=== PATIENT | male | born 1980 | race Caucasian/White ===

== ENCOUNTER 2017-06-08 23:19 | Inpatient (IN) | payer SELFPAY ==
[2017-06-09] MEDS ORDERED: NORMAL SALINE 1000 ML 1,000 ML IV ONE ×4 (00:21→03:47)
--- NOTE | 2017-06-09 00:46 | ER Document Report ---
ED Blood Sugar Problem - General Chief Complaint: High Blood Sugar Stated Complaint: POSSIBLE HIGH BLOOD SUGAR Time Seen by Provider: 06/09/17 00:30 Mode of Arrival: Ambulatory Information source: Patient TRAVEL OUTSIDE OF THE [place] IN LAST 30 DAYS: No - HPI Onset: This evening Onset/Duration: Gradual Quality of pain: Other - SORENESS Severity: Moderate Blood sugar level at home: 400's Insulin taken: Yes Glucose taken: No Associated symptoms: Increased thirst, Frequent urination, Nausea, Vomiting, Weakness - Related Data Allergies/Adverse Reactions: No Known Allergies Allergy (Verified 06/09/17 02:23) Past Medical History - General Information source: Patient - Social History Smoking Status: Current Every Day Smoker Cigarette use (# per day): Yes Chew tobacco use (# tins/day): No Frequency of alcohol use: Occasional Drug Abuse: None Lives with: Friend Family History: DM - Mother Patient has suicidal ideation: No Patient has homicidal ideation: No - Past Medical History Cardiac Medical History: Reports: Hx Hypertension Pulmonary Medical History: Reports: None EENT Medical History: Reports: None Neurological Medical History: Reports: None Endocrine Medical History: Reports: Hx Diabetes Mellitus Type 1, Hx Diabetes Mellitus Type 2 Renal/ Medical History: Reports: None. Denies: Hx Peritoneal Dialysis Malignancy Medical History: Reports None GI Medical History: Reports: None, Hx Gastroesophageal Reflux Disease Musculoskeltal Medical History: Reports None Psychiatric Medical History: Reports: None Denies: Hx Depression Surgical Hx: Negative - Immunizations Immunizations up to date: Yes Hx Diphtheria, Pertussis, Tetanus Vaccination: Yes Hx Pneumococcal Vaccination: 10/06/13 Review of Systems - Review of Systems Constitutional: Weakness EENT: Throat pain Cardiovascular: No symptoms reported Respiratory: Cough Gastrointestinal: Nausea, Vomiting Genitourinary: No symptoms reported Musculoskeletal: No symptoms reported Skin: No symptoms reported Neurological/Psychological: Weakness Physical Exam - Vital signs Vitals: Temp Pulse Resp BP Pulse Ox 97.9 F 132 H 18 133/91 H 96 06/09/17 00:09 06/09/17 00:09 06/09/17 00:09 06/09/17 00:09 06/09/17 00:09 Interpretation: Hypertensive, Tachycardic. No: Tachypneic, Febrile - General General appearance: Appears well, Alert In distress: None - HEENT Head: Normocephalic Eyes: Normal Conjunctiva: Normal Ears: Normal Nasal: Normal Mouth/Lips: Normal Mucous membranes: Dry Pharynx: Erythema. No: Exudate Neck: Normal, Supple - Respiratory Respiratory status: No respiratory distress Breath sounds: Normal - Cardiovascular Rhythm: Regular, Tachycardia Heart sounds: Normal auscultation Murmur: No - Abdominal Inspection: Normal Distension: No distension - Extremities General upper extremity: Normal inspection General lower extremity: Normal inspection - Neurological Neuro grossly intact: Yes Cognition: Normal Orientation: AAOx4 - Psychological Associated symptoms: Normal affect, Normal mood - Skin Skin Temperature: Warm Skin Moisture: Dry Skin Color: Normal Skin Turgor: Elastic Course - Vital Signs Vital signs: Temp Pulse Resp BP Pulse Ox 97.9 F 132 H 20 155/93 H 100 06/09/17 00:09 06/09/17 00:09 06/09/17 03:01 06/09/17 03:01 06/09/17 03:01 - Laboratory Result Diagrams: 06/09/17 01:15 06/09/17 01:15 Laboratory results interpreted by me: 06/09/17 06/09/17 06/09/17 00:58 01:15 01:15 WBC 13.1 H Seg Neutrophils % 79.1 H Absolute Neutrophils 10.3 H VBG pH VBG HCO3 Sodium 135.5 L Potassium 5.4 H Chloride 94 L Carbon Dioxide 6 L* Anion Gap 36 H BUN 28 H Glucose 525 H* POC Glucose 528 H* Calcium 10.6 H Direct Bilirubin 0.6 H Alkaline Phosphatase 129 H Total Protein 8.8 H Albumin 5.4 H Urine Glucose (UA) Urine Ketones Urine Blood 06/09/17 06/09/17 01:15 01:15 WBC Seg Neutrophils % Absolute Neutrophils VBG pH 7.15 L* VBG HCO3 12.3 L Sodium Potassium Chloride Carbon Dioxide Anion Gap BUN Glucose POC Glucose Calcium Direct Bilirubin Alkaline Phosphatase Total Protein Albumin Urine Glucose (UA) >=500 H Urine Ketones 80 H Urine Blood MODERATE H - EKG Interpretation by Me EKG shows normal: Sinus rhythm, [place], Intervals, QRS Complexes, ST-T Waves - INF. T ABNLS, NS Rate: Tachycardia - Consults DR. BEACH Time consulted: 03:42 Consulted provider: will come to ER Discharge - Discharge Clinical Impression: Tachycardia DKA (diabetic ketoacidoses) Qualifiers: Diabetes mellitus type: type 1 Diabetes mellitus complication detail: without coma Qualified Code(s): E10.10 - Type 1 diabetes mellitus with ketoacidosis without coma Hypertension Qualifiers: Hypertension type: essential hypertension Qualified Code(s): I10 - Essential ( primary) hypertension Condition: Fair Disposition: ADMITTED INPATIENT Admitting Provider: Hospitalist Unit Admitted: [facility]
[2017-06-09 01:29] LABS: ABSOLUTE BASOPHILS # (AUTO) 0.1 10^3/uL (0.0-0.2); ABSOLUTE LYMPHOCYTES (AUTO) 1.8 10^3/uL (0.5-4.7); ABSOLUTE MONOCYTES (AUTO) 0.8 10^3/uL (0.1-1.4); ABSOLUTE NEUT (AUTO) 10.3 10^3/uL (1.7-8.2); EOSINOPHILS % (AUTO) 0.1 % (0-6); HEMATOCRIT 41.9 % (37.9-51.0); HEMOGLOBIN 13.7 g/dL (13.5-17.0); HGB HCT DIFFERENCE -0.8; LYMPHOCYTES % (AUTO) 13.6 % (13-45); MEAN CORPUSCULAR HEMOGLOBIN 31.1 pg (27.0-33.4); MEAN CORPUSCULAR HGB CONC 32.6 g/dL (32.0-36.0); MEAN CORPUSCULAR VOLUME 96 fl (80-97); MONOCYTES % (AUTO) 6.2 % (3-13); RED BLOOD COUNT 4.39 10^6/uL (4.35-5.55); RED CELL DISTRIBUTION WIDTH 13.6 % (11.5-14.0); SEGMENTED NEUTROPHILS % (AUTO) 79.1 % (42-78); WHITE BLOOD COUNT 13.1 10^3/uL (4.0-10.5)
[2017-06-09 01:31] LABS: VENOUS BLOOD BASE EXCESS -15.7 mmol/L; VENOUS BLOOD HCO3 12.3 mmol/L (20-32); VENOUS BLOOD PCO2 36.5 mmHg (35-63)
[2017-06-09 01:32] LABS: VENOUS BLOOD PH 7.15 (7.30-7.42)
[2017-06-09] MEDS ORDERED: NORMAL SALINE 100 ML with INSULIN REGULAR, HUMAN 100 UNIT IV PRN ×4 (01:34→03:43)
[2017-06-09] MEDS ORDERED: INSULIN REG, HUMAN 100 UNIT/ML 3 ML VIAL (PYX) IV ONE (01:38)
[2017-06-09 01:42] LABS: ALANINE AMINOTRANSFERASE 24 U/L (21-72); ALBUMIN 5.4 g/dL (3.5-5.0); ALKALINE PHOSPHATASE 129 U/L (38-126); ASPARTATE AMINO TRANSFERASE 24 U/L (17-59); BILIRUBIN,DIRECT 0.6 mg/dL (0.0-0.4); BILIRUBIN,TOTAL 0.8 mg/dL (0.2-1.3); BLOOD UREA NITROGEN 28 mg/dL (7-20); CALCIUM 10.6 mg/dL (8.4-10.2); CHLORIDE 94 mmol/L (98-107); CREATININE RESULT 1.22 mg/dL (0.52-1.25); SODIUM 135.5 mmol/L (137-145); TOTAL PROTEIN 8.8 g/dL (6.3-8.2)
[2017-06-09] MEDS ORDERED: ONDANSETRON HCL INJ/PF 4 MG/2 ML SDV IV ONE (01:45)
[2017-06-09 01:46] LABS: APPEARANCE,URINE CLEAR; BILIRUBIN,URINE NEGATIVE (NEGATIVE); GLUCOSE, URINE >=500 mg/dL (NEGATIVE); KETONES,URINE 80 mg/dL (NEGATIVE); LEUKOCYTE ESTERASE,URINE NEGATIVE (NEGATIVE); NITRITE,URINE NEGATIVE (NEGATIVE); PROTEIN,URINE NEGATIVE (NEGATIVE); UROBILINOGEN,URINE NEGATIVE mg/dL (<2.0)
[2017-06-09 01:59] LABS: POTASSIUM 5.4 mmol/L (3.6-5.0)
[2017-06-09 02:01] LABS: ANION GAP 36 (5-19)
[2017-06-09 02:02] LABS: CARBON DIOXIDE 6 mmol/L (22-30); GLUCOSE 525 mg/dL (75-110)
[2017-06-09 02:24] LABS: CREATINE KINASE MB 2.06 ng/mL (<4.55)
[2017-06-09 02:25] LABS: TROPONIN I < 0.012 ng/mL
[2017-06-09] MEDS ORDERED: DEXTROSE 40% GEL 15 GM TUBE PO PRN ×2 (03:43)
[2017-06-09] MEDS ORDERED: ACETAMINOPHEN 325 MG TABLET PO PRN (03:43)
[2017-06-09] MEDS ORDERED: IPRATROPIUM/ALBUTEROL 0.5-2.5 MG/3 ML AMPUL NEB PRN (03:43)
[2017-06-09] MEDS ORDERED: DEXTROSE 50%-WATER 25 GM/50 ML DISP.SYRIN IV PRN ×2 (03:43)
[2017-06-09] MEDS ORDERED: GLUCAGON,HUMAN RECOMB 1 MG INJ IM PRN (03:43)
[2017-06-09 04:09] LABS: MAGNESIUM 2.3 mg/dL (1.6-2.3); PHOSPHORUS 5.8 mg/dL (2.5-4.5)
--- NOTE | 2017-06-09 04:49 | PDOC H&P ---
History of Present Illness Admission Date/PCP: 06/09/17 03:49 Patient complains of: Hyperglycemia and abdominal pain History of Present Illness: LEANNA HERNANDEZ II is a 36 year old male with a past medical history of insulin- dependent diabetes and recurrent admissions for DKA. Patient denies medication , diet or lifestyle noncompliance. However admits to recent URI and persistent tobacco abuse. He has had approximately 48 hours of worsening glycemic control developing abdominal pain nausea vomiting, polyuria and polydipsia. Recognizing the symptoms he is prompted to seek evaluation emergency room finding severe diabetic ketoacidosis with hyperkalemia, tachycardia and leukocytosis. He started on IV fluid, insulin and referred to the hospitalist for admission. Past Medical History Cardiac Medical History: Reports: Hypertension Pulmonary Medical History: Reports: None EENT Medical History: Reports: None Neurological Medical History: Reports: None Endocrine Medical History: Reports: Diabetes Mellitus Type 1, Diabetes Mellitus Type 2 Renal/ Medical History: Reports: None Malignancy Medical History: Reports: None GI Medical History: Reports: None, Gastroesophageal Reflux Disease Musculoskeltal Medical History: Reports: None Psychiatric Medical History: Reports: None Denies: Depression Social History Information Source: Patient, [facility] Records Lives with: Friend Smoking Status: Current Every Day Smoker Cigarettes Packs Per Day: 1 Frequency of Alcohol Use: Rare Hx Recreational Drug Use: No Drugs: None Hx Prescription Drug Abuse: No - Advance Directive Resuscitation Status: Full Code Family History Family History: DM - Mother Parental Family History Reviewed: Yes Children Family History Reviewed: Yes Sibling(s) Family History Reviewed.: Yes Medication/Allergy Home Medications: Insulin Lispro [Humalog Insulin (Lispro) 100 unit/mL] 0 unit SUBCUT ACHSP PRN # 1 pe 05/18/15 Insulin Glargine,Hum.rec.anlog [Lantus Insulin 100 Unit/1 ml 10 ml] 30 unit SUBCUT QHS 06/18/16 Albuterol Sulfate [Proair HFA Inhalation Aerosol 8.5 gm MDI] 2 puff IH Q6 #1 hfa.aer.ad 06/19/16 Fluticasone Propionate [Flonase Nasal [place] 50 Mcg/[place] 16 gm] 1 spray NASL Q12 #1 bottle 06/19/16 Guaifenesin [Mucinex Sr 600 mg Tablet.sa] 1,200 mg PO Q12 #30 tablet.sa Insulin Glargine,Hum.rec.anlog [Lantus Insulin 100 Unit/1 ml 10 ml] 10 unit SUBCUT QAM 30 Days unit 06/19/16 Insulin Lispro [Humalog Insulin (Lispro) 100 unit/mL] 0 - 12 unit SUBCUT ACHSP PRN unit 06/19/16 Omeprazole Magnesium [Prilosec Otc] 20 mg PO BID #60 tablet. 06/19/16 Allergies/Adverse Reactions: No Known Allergies Allergy (Verified 06/09/17 02:23) Review of Systems Constitutional: ABSENT: chills, fever(s), headache(s), weight gain, weight loss Eyes: ABSENT: visual disturbances Ears: ABSENT: hearing changes Cardiovascular: ABSENT: chest pain, dyspnea on exertion, edema, orthropnea, palpitations Respiratory: ABSENT: cough, hemoptysis Gastrointestinal: ABSENT: abdominal pain, constipation, diarrhea, hematemesis, hematochezia, nausea, vomiting Genitourinary: ABSENT: dysuria, hematuria Musculoskeletal: ABSENT: joint swelling Integumentary: ABSENT: rash, wounds Neurological: ABSENT: abnormal gait, abnormal speech, confusion, dizziness, focal weakness, syncope Psychiatric: ABSENT: anxiety, depression, homidical ideation, suicidal ideation Endocrine: ABSENT: cold intolerance, heat intolerance, polydipsia, polyuria Hematologic/Lymphatic: ABSENT: easy bleeding, easy bruising Physical Exam Vital Signs: Temp Pulse Resp BP Pulse Ox 97.9 F 120 H 18 156/87 H 100 06/09/17 04:37 06/09/17 04:37 06/09/17 04:37 06/09/17 04:37 06/09/17 04:37 General appearance: PRESENT: cooperative, disheveled, severe distress, thin Head exam: PRESENT: atraumatic, normocephalic Eye exam: PRESENT: conjunctiva pink, EOMI, PERRLA. ABSENT: scleral icterus Ear exam: PRESENT: normal external ear exam Mouth exam: PRESENT: dry mucosa Neck exam: ABSENT: carotid bruit, JVD, lymphadenopathy, thyromegaly Respiratory exam: PRESENT: accessory muscle use, clear to auscultation bria, tachypnea. ABSENT: rales, rhonchi, wheezes Cardiovascular exam: PRESENT: RRR. ABSENT: diastolic murmur, rubs, systolic murmur Pulses: PRESENT: normal dorsalis pedis pul Vascular exam: PRESENT: normal capillary refill GI/Abdominal exam: PRESENT: hyperactive bowel sounds, soft, tenderness. ABSENT : distended, firm, guarding, rebound, rigid Rectal exam: PRESENT: deferred Extremities exam: PRESENT: full ROM. ABSENT: calf tenderness, clubbing, pedal edema Neurological exam: PRESENT: alert, awake, oriented to person, oriented to place , oriented to time, oriented to situation, CN II-XII grossly intact. ABSENT: motor sensory deficit Psychiatric exam: PRESENT: appropriate affect, normal mood. ABSENT: homicidal ideation, suicidal ideation Skin exam: PRESENT: dry, intact, warm. ABSENT: cyanosis, rash Assessment & Plan - Diagnosis (1) DKA (diabetic ketoacidoses) Qualifiers: Diabetes mellitus type: type 1 Diabetes mellitus complication detail: without coma Qualified Code(s): E10.10 - Type 1 diabetes mellitus with ketoacidosis without coma Is this a current diagnosis for this admission?: Yes Plan: Admission to IMCU, n.p.o., IV fluids and insulin based on chemistry results every 4 hours, electrolyte repletion as needed and education (2) Tachycardia Is this a current diagnosis for this admission?: Yes Plan: Secondary to #1 with dehydration and abdominal pain IV fluid resuscitation (3) Leukocytosis Is this a current diagnosis for this admission?: Yes Plan: Secondary to #1 correct underlying cause reevaluate CBC (4) Tobacco use disorder Is this a current diagnosis for this admission?: Yes Plan: Tobacco Dependence patient received tobacco cessation counseling and offered nicotine replacement options - Time Time Spent: 50 to 70 Minutes - Inpatient Certification Medical Necessity: Need Close Monitoring Due to Risk of Patient Decompensation
[2017-06-09 05:08] LABS: ABSOLUTE BASOPHILS # (AUTO) 0.1 10^3/uL (0.0-0.2); ABSOLUTE LYMPHOCYTES (AUTO) 1.7 10^3/uL (0.5-4.7); ABSOLUTE MONOCYTES (AUTO) 0.8 10^3/uL (0.1-1.4); ABSOLUTE NEUT (AUTO) 10.4 10^3/uL (1.7-8.2); BASOPHILS % (AUTO) 0.7 % (0-2); HEMATOCRIT 34.4 % (37.9-51.0); HEMOGLOBIN 11.8 g/dL (13.5-17.0); LYMPHOCYTES % (AUTO) 12.9 % (13-45); MEAN CORPUSCULAR HEMOGLOBIN 31.5 pg (27.0-33.4); MEAN CORPUSCULAR HGB CONC 34.2 g/dL (32.0-36.0); MONOCYTES % (AUTO) 5.9 % (3-13); RED BLOOD COUNT 3.74 10^6/uL (4.35-5.55); RED CELL DISTRIBUTION WIDTH 13.3 % (11.5-14.0); SEGMENTED NEUTROPHILS % (AUTO) 80.5 % (42-78); WHITE BLOOD COUNT 12.9 10^3/uL (4.0-10.5)
[2017-06-09] MEDS ORDERED: DEXTROSE 5%-1/2 NORMAL SALINE 1,000 ML IV PRN (05:14)
[2017-06-09 05:21] LABS: ANION GAP 19 (5-19); BLOOD UREA NITROGEN 25 mg/dL (7-20); CARBON DIOXIDE 13 mmol/L (22-30); CHLORIDE 107 mmol/L (98-107); CREATININE RESULT 0.98 mg/dL (0.52-1.25); GLUCOSE 184 mg/dL (75-110); POTASSIUM 4.9 mmol/L (3.6-5.0); SODIUM 138.8 mmol/L (137-145)
[2017-06-09 05:22] LABS: MEAN CORPUSCULAR VOLUME 92 fl (80-97)
[2017-06-09] MEDS: HEPARIN SOD (PORCINE) 5,000 UNIT/ML 1 ML SYRINGE SUBCUT SCH ×3 (05:36→22:13)
[2017-06-09] MEDS: POTASSI CL 20 MEQ/D5-1/2NS 1L 1,000 ML IV PRN ×2 (05:36→10:05)
[2017-06-09] MEDS ORDERED: INSULIN GLARGINE,HUM.REC.ANLOG 1,000 UNIT/10 ML UNIT SUBCUT SCH ×2 (08:00→22:00)
[2017-06-09] MEDS ORDERED: IPRATROPIUM/ALBUTEROL 0.5-2.5 MG/3 ML AMPUL NEB SCH (08:00)
--- NOTE | 2017-06-09 08:41 | PDOC PROGRESS REPORT ---
Subjective Progress Note for:: 06/09/17 Subjective:: Patient is seen on morning rounds. He is sitting on the side of the bed eating ice chips. He denies any nausea, vomiting or abdominal pain. He denies any cough , dyspnea or shortness of breath. He denies any fevers or chills. He states he has not had his lantus insulin pen for 2 days because he was staying at a friend 's house and left it there. He states they came to [place] to go to a barbeque and were drinking " Body Armor.." which is apparently quite high in sugar when he began feeling ill. He denies any complaints at the present time. He is hungry. Physical Exam Vital Signs: Temp Pulse Resp BP Pulse Ox 99.2 F 111 H 16 115/61 100 06/09/17 07:30 06/09/17 07:30 06/09/17 07:30 06/09/17 07:30 06/09/17 07:30 Intake & Output 06/08/17 06/09/17 06/10/17 06:59 06:59 06:59 Intake Total 430 Balance 430 Weight 56.6 kg General appearance: PRESENT: no acute distress, thin, well-developed Head exam: PRESENT: atraumatic, normocephalic Eye exam: PRESENT: conjunctiva pink, EOMI, PERRLA. ABSENT: scleral icterus Ear exam: PRESENT: normal external ear exam Mouth exam: PRESENT: moist, tongue midline Teeth exam: PRESENT: poor dentation Neck exam: ABSENT: carotid bruit, JVD, lymphadenopathy, thyromegaly Respiratory exam: PRESENT: clear to auscultation bria. ABSENT: rales, rhonchi, wheezes Cardiovascular exam: PRESENT: RRR. ABSENT: diastolic murmur, rubs, systolic murmur Pulses: PRESENT: normal dorsalis pedis pul Vascular exam: PRESENT: normal capillary refill GI/Abdominal exam: PRESENT: normal bowel sounds, soft. ABSENT: distended, guarding, mass, organolmegaly, rebound, tenderness Rectal exam: PRESENT: deferred Extremities exam: PRESENT: calf tenderness Musculoskeletal exam: PRESENT: ambulatory Neurological exam: PRESENT: alert, awake, oriented to person, oriented to place , oriented to time, oriented to situation, CN II-XII grossly intact. ABSENT: motor sensory deficit Psychiatric exam: PRESENT: appropriate affect, normal mood. ABSENT: homicidal ideation, suicidal ideation Skin exam: PRESENT: dry, intact, warm. ABSENT: cyanosis, rash Results Laboratory Results: 06/09/17 05:01 06/09/17 05:01 06/09/17 06/09/17 05:01 05:01 WBC 12.9 H RBC 3.74 L Hgb 11.8 L Hct 34.4 L MCV 92 D MCH 31.5 MCHC 34.2 RDW 13.3 Plt Count 278 Seg Neutrophils % 80.5 H Lymphocytes % 12.9 L Monocytes % 5.9 Eosinophils % 0.0 Basophils % 0.7 Absolute Neutrophils 10.4 H Absolute Lymphocytes 1.7 Absolute Monocytes 0.8 Absolute Eosinophils 0.0 Absolute Basophils 0.1 Sodium 138.8 Potassium 4.9 Chloride 107 Carbon Dioxide 13 L Anion Gap 19 BUN 25 H Creatinine 0.98 Est GFR ( Amer) > 60 Est GFR (Non-Af Amer) > 60 Glucose 184 H Calcium 9.0 Assessment & Plan - Diagnosis (1) DKA (diabetic ketoacidoses) Qualifiers: Diabetes mellitus type: type 1 Diabetes mellitus complication detail: without coma Qualified Code(s): E10.10 - Type 1 diabetes mellitus with ketoacidosis without coma Is this a current diagnosis for this admission?: Yes Plan: Gap has closed. Will continue IV insulin, with dextrose source IV fluids. Begin diabetic diet, transition to lantus insulin and monitor BMP every 4 hrs (2) Tachycardia Is this a current diagnosis for this admission?: Yes Plan: Improving with IV hydration. No signs of sepsis or infectious source (3) Leukocytosis Is this a current diagnosis for this admission?: Yes Plan: Most likely secondary to acidosis and dehydration. Improving. No signs of infection (4) Noncompliance Is this a current diagnosis for this admission?: Yes (5) Tobacco use disorder Is this a current diagnosis for this admission?: Yes Plan: Counseled (6) DVT prophylaxis Is this a current diagnosis for this admission?: Yes Plan: Heparin 5000u q8h - Time Time Spent with patient: 25-34 minutes Critical Time spent with patient: 15-24 minutes Medications reviewed and adjusted accordingly: Yes Anticipated discharge: Home Within: within 48 hours
--- NOTE | 2017-06-09 09:11 | EKG REPORT ---
SEVERITY:- ABNORMAL ECG - SINUS TACHYCARDIA NONSPECIFIC T ABNORMALITIES, INFERIOR LEADS : Confirmed by: Lorenzo Solis MD 09-Jun-2017 09:11:24
[2017-06-09] MEDS: LANSOPRAZOLE 30 MG TAB.RAP.DR PO SCH (10:32)
[2017-06-09] MEDS: FLUTICASONE NASAL SPRAY 50 MCG/SPRY 120 SPRAY/16 GM NASL SCH ×2 (10:33→22:13)
[2017-06-09] MEDS: GUAIFENESIN 600 MG TABLET.SA PO SCH ×2 (10:38→22:13)
[2017-06-09] MEDS: DOCUSATE SODIUM 100 MG CAPSULE PO SCH ×2 (10:38→19:07)
[2017-06-09 10:41] LABS: ANION GAP 11 (5-19); BLOOD UREA NITROGEN 21 mg/dL (7-20); CALCIUM 8.5 mg/dL (8.4-10.2); CARBON DIOXIDE 20 mmol/L (22-30); CHLORIDE 106 mmol/L (98-107); CREATININE RESULT 0.86 mg/dL (0.52-1.25); GLUCOSE 172 mg/dL (75-110); POTASSIUM 4.4 mmol/L (3.6-5.0); SODIUM 136.8 mmol/L (137-145)
[2017-06-09] MEDS ORDERED: PHENOL/SODIUM PHENOLATE 100 SPRAY/177 ML BOTTLE PO PRN (11:38)
[2017-06-09 14:43] LABS: ANION GAP 10 (5-19); BLOOD UREA NITROGEN 18 mg/dL (7-20); CALCIUM 8.5 mg/dL (8.4-10.2); CARBON DIOXIDE 21 mmol/L (22-30); CHLORIDE 104 mmol/L (98-107); CREATININE RESULT 0.79 mg/dL (0.52-1.25); GLUCOSE 208 mg/dL (75-110); SODIUM 134.6 mmol/L (137-145)
[2017-06-09 18:33] LABS: ANION GAP 11 (5-19); BLOOD UREA NITROGEN 16 mg/dL (7-20); CALCIUM 8.9 mg/dL (8.4-10.2); CARBON DIOXIDE 21 mmol/L (22-30); CHLORIDE 106 mmol/L (98-107); CREATININE RESULT 0.85 mg/dL (0.52-1.25); GLUCOSE 129 mg/dL (75-110); POTASSIUM 4.5 mmol/L (3.6-5.0); SODIUM 137.5 mmol/L (137-145)
[2017-06-09] MEDS: ALBUTEROL SULFATE HFA (90 MCG/PUFF) 200 PUFF/8.5 GM MDI IH SCH (19:12)
[2017-06-09 21:51] LABS: ANION GAP 11 (5-19); BLOOD UREA NITROGEN 15 mg/dL (7-20); CALCIUM 8.4 mg/dL (8.4-10.2); CARBON DIOXIDE 18 mmol/L (22-30); CHLORIDE 105 mmol/L (98-107); CREATININE RESULT 0.81 mg/dL (0.52-1.25); GLUCOSE 293 mg/dL (75-110); POTASSIUM 4.1 mmol/L (3.6-5.0); SODIUM 133.9 mmol/L (137-145)
[2017-06-09] MEDS ORDERED: INSULIN GLARGINE,HUM.REC.ANLOG 300 UNIT/3 ML INSULN.PEN SUBCUT SCH (22:00)
[2017-06-10] MEDS: ALBUTEROL SULFATE HFA (90 MCG/PUFF) 200 PUFF/8.5 GM MDI IH SCH ×3 (00:31→11:34)
[2017-06-10 01:20] LABS: ANION GAP 11 (5-19); BLOOD UREA NITROGEN 13 mg/dL (7-20); CALCIUM 8.9 mg/dL (8.4-10.2); CARBON DIOXIDE 20 mmol/L (22-30); CHLORIDE 108 mmol/L (98-107); CREATININE RESULT 0.76 mg/dL (0.52-1.25); GLUCOSE 180 mg/dL (75-110); POTASSIUM 3.9 mmol/L (3.6-5.0); SODIUM 138.6 mmol/L (137-145)
[2017-06-10 05:33] LABS: ABSOLUTE BASOPHILS # (AUTO) 0.1 10^3/uL (0.0-0.2); ABSOLUTE EOSINOPHILS # (AUTO) 0.2 10^3/uL (0.0-0.6); ABSOLUTE LYMPHOCYTES (AUTO) 2.3 10^3/uL (0.5-4.7); ABSOLUTE MONOCYTES (AUTO) 0.5 10^3/uL (0.1-1.4); ABSOLUTE NEUT (AUTO) 2.7 10^3/uL (1.7-8.2); BASOPHILS % (AUTO) 0.9 % (0-2); EOSINOPHILS % (AUTO) 3.3 % (0-6); LYMPHOCYTES % (AUTO) 39.8 % (13-45); MEAN CORPUSCULAR HEMOGLOBIN 31.1 pg (27.0-33.4); MEAN CORPUSCULAR HGB CONC 34.3 g/dL (32.0-36.0); MEAN CORPUSCULAR VOLUME 91 fl (80-97); MONOCYTES % (AUTO) 8.8 % (3-13); RED BLOOD COUNT 3.85 10^6/uL (4.35-5.55); RED CELL DISTRIBUTION WIDTH 13.7 % (11.5-14.0); SEGMENTED NEUTROPHILS % (AUTO) 47.2 % (42-78); WHITE BLOOD COUNT 5.8 10^3/uL (4.0-10.5)
[2017-06-10 05:45] LABS: ANION GAP 7 (5-19); BLOOD UREA NITROGEN 11 mg/dL (7-20); CALCIUM 9.1 mg/dL (8.4-10.2); CARBON DIOXIDE 25 mmol/L (22-30); CHLORIDE 107 mmol/L (98-107); CREATININE RESULT 0.74 mg/dL (0.52-1.25); GLUCOSE 180 mg/dL (75-110); POTASSIUM 3.4 mmol/L (3.6-5.0)
[2017-06-10] MEDS: HEPARIN SOD (PORCINE) 5,000 UNIT/ML 1 ML SYRINGE SUBCUT SCH ×2 (05:50→15:14)
[2017-06-10] MEDS ORDERED: INSULIN GLARGINE,HUM.REC.ANLOG 300 UNIT/3 ML INSULN.PEN SUBCUT SCH ×2 (08:00→08:31)
[2017-06-10] MEDS ORDERED: POTASSIUM CHLORIDE 10 MEQ TABLET.SA PO ONE (08:30)
[2017-06-10] MEDS: LANSOPRAZOLE 30 MG TAB.RAP.DR PO SCH (08:57)
[2017-06-10] MEDS: DOCUSATE SODIUM 100 MG CAPSULE PO SCH (09:03)
[2017-06-10] MEDS: GUAIFENESIN 600 MG TABLET.SA PO SCH (09:03)
[2017-06-10 09:34] LABS: BLOOD UREA NITROGEN 8 mg/dL (7-20); CALCIUM 9.2 mg/dL (8.4-10.2); CARBON DIOXIDE 20 mmol/L (22-30); CHLORIDE 105 mmol/L (98-107); CREATININE RESULT 0.72 mg/dL (0.52-1.25); GLUCOSE 229 mg/dL (75-110); POTASSIUM 4.1 mmol/L (3.6-5.0)
[2017-06-10 09:35] LABS: ANION GAP 12 (5-19); SODIUM 137.4 mmol/L (137-145)
[2017-06-10] MEDS: FLUTICASONE NASAL SPRAY 50 MCG/SPRY 120 SPRAY/16 GM NASL SCH (09:47)
[2017-06-10 14:08] VITALS: BP 156/87
[2017-06-10 14:15] LABS: ANION GAP 12 (5-19); BLOOD UREA NITROGEN 8 mg/dL (7-20); CALCIUM 9.4 mg/dL (8.4-10.2); CARBON DIOXIDE 22 mmol/L (22-30); CHLORIDE 104 mmol/L (98-107); CREATININE RESULT 0.75 mg/dL (0.52-1.25); GLUCOSE 165 mg/dL (75-110); POTASSIUM 4.8 mmol/L (3.6-5.0); SODIUM 138.1 mmol/L (137-145)
--- NOTE | 2017-06-12 08:00 | PDOC DISCHARGE SUMMARY ---
General - Admit/Disc Date/PCP Admission Date/Primary Care Provider: 06/09/17 03:43 Discharge Date: 06/10/17 - Discharge Diagnosis (1) DKA (diabetic ketoacidoses) Is this a current diagnosis for this admission?: Yes Summary: Resolved. He will be discharged (2) Tachycardia Is this a current diagnosis for this admission?: Yes (3) Leukocytosis Is this a current diagnosis for this admission?: Yes (4) Noncompliance Is this a current diagnosis for this admission?: Yes (5) Tobacco use disorder Is this a current diagnosis for this admission?: Yes (6) DVT prophylaxis Is this a current diagnosis for this admission?: Yes - Additional Information Resuscitation Status: Full Code Home Medications: Acetaminophen [Tylenol 325 mg Tablet] 650 mg PO Q4HP PRN tablet 06/10/17 Insulin Detemir [Levemir Flextouch] 30 unit SQ QAM #5 ml 06/10/17 Insulin Lispro [Humalog Insulin (Lispro) 100 unit/mL] 0 unit SUBCUT .SLD SCALE # 5 ml 06/10/17 History of Present Illness Patient complains of: Nausea, Vomiting, and hyperglycemia History of Present Illness: LEANNA HERNANDEZ II is a 36 year old male with a past medical history of insulin- dependent diabetes and recurrent admissions for DKA. Patient denies medication , diet or lifestyle noncompliance. However admits to recent URI and persistent tobacco abuse. He has had approximately 48 hours of worsening glycemic control developing abdominal pain nausea vomiting, polyuria and polydipsia. Recognizing the symptoms he is prompted to seek evaluation emergency room finding severe diabetic ketoacidosis with hyperkalemia, tachycardia and leukocytosis. He started on IV fluid, insulin and referred to the hospitalist for admission. Hospital Course Hospital Course: Patient was admitted to the [facility] on the hospitalist service. Started on IV insulin with DKA protocol. He was aggressively rehydrated with normal saline and then D5 half normal saline. His anion gap closed quickly. His nausea and vomiting resolved. He admits to not taking his Levemir insulin for the last 2 days per he was also at a barbecue drinking high glucose drinks. Patient was able to be transitioned to IV Levemir and off the end IV insulin once his bicarbonate was normalized. He has further no further abdominal pain he was able to tolerate a regular diabetic diet Physical Exam Vital Signs: Temp Pulse Resp BP Pulse Ox 98.6 F 108 H 18 142/89 H 100 06/10/17 12:09 06/10/17 12:09 06/10/17 12:09 06/10/17 12:09 06/10/17 12:09 Intake & Output 06/09/17 06/10/17 06/11/17 06:59 06:59 06:59 Intake Total 430 2905 820 Balance 430 2905 820 Weight 56.6 kg 57.8 kg Results Laboratory Results: 06/10/17 05:15 06/09/17 06/09/17 06/09/17 14:12 18:05 21:15 WBC RBC Hgb Hct MCV MCH MCHC RDW Plt Count Seg Neutrophils % Lymphocytes % Monocytes % Eosinophils % Basophils % Absolute Neutrophils Absolute Lymphocytes Absolute Monocytes Absolute Eosinophils Absolute Basophils Sodium 134.6 L 137.5 133.9 L Potassium 4.0 4.5 4.1 Chloride 104 106 105 Carbon Dioxide 21 L 21 L 18 L Anion Gap 10 11 11 BUN 18 16 15 Creatinine 0.79 0.85 0.81 Est GFR ( Amer) > 60 > 60 > 60 Est GFR (Non-Af Amer) > 60 > 60 > 60 Glucose 208 H 129 H 293 H Calcium 8.5 8.9 8.4 06/10/17 06/10/17 06/10/17 01:00 05:15 05:15 WBC 5.8 RBC 3.85 L Hgb 12.0 L Hct 35.0 L MCV 91 MCH 31.1 MCHC 34.3 RDW 13.7 Plt Count 229 Seg Neutrophils % 47.2 Lymphocytes % 39.8 Monocytes % 8.8 Eosinophils % 3.3 Basophils % 0.9 Absolute Neutrophils 2.7 Absolute Lymphocytes 2.3 Absolute Monocytes 0.5 Absolute Eosinophils 0.2 Absolute Basophils 0.1 Sodium 138.6 139.0 Potassium 3.9 3.4 L Chloride 108 H 107 Carbon Dioxide 20 L 25 Anion Gap 11 7 BUN 13 11 Creatinine 0.76 0.74 Est GFR ( Amer) > 60 > 60 Est GFR (Non-Af Amer) > 60 > 60 Glucose 180 H 180 H Calcium 8.9 9.1 06/10/17 09:03 WBC RBC Hgb Hct MCV MCH MCHC RDW Plt Count Seg Neutrophils % Lymphocytes % Monocytes % Eosinophils % Basophils % Absolute Neutrophils Absolute Lymphocytes Absolute Monocytes Absolute Eosinophils Absolute Basophils Sodium 137.4 Potassium 4.1 Chloride 105 Carbon Dioxide 20 L Anion Gap 12 BUN 8 Creatinine 0.72 Est GFR ( Amer) > 60 Est GFR (Non-Af Amer) > 60 Glucose 229 H Calcium 9.2
== END 2017-06-10 15:00 | disposition home or self-care (01) | DRG 639 ==
LOC: ER 23:19 → EH 06-09 03:43 → UNDOADMIN 06-09 03:49 → EH 06-09 03:49 → 3N 06-09 05:02 → 3W 06-09 12:30
PROVIDERS: ADMIT Internal Medicine; ATTEND Internal Medicine
PROC: 3E0F73Z Introduction of Anti-inflammatory into Respiratory Tract, Via Natural or Artificial Opening (ICD-10-PCS; principal; 2017-06-09)
DX: E10.10 Type 1 diabetes mellitus with ketoacidosis without coma (principal); E87.5 Hyperkalemia; I10 Essential (primary) hypertension; K21.9 Gastro-esophageal reflux disease without esophagitis; F17.210 Nicotine dependence, cigarettes, uncomplicated; Z91.19 Patient's noncompliance with other medical treatment and regimen; Z79.4 Long term (current) use of insulin; Z79.899 Other long term (current) drug therapy; Z83.3 Family history of diabetes mellitus
CPT/HCPCS: 36415; 80048; 80053; 81001; 82550; 82553; 82803; 82962; 83735; 84100; 84484; 85025; 93005; 93010; 94640; 96374; 99285; J1644; J1815; J2405; J3480; J3490; J7030; J7620